=== PATIENT | female | born 1965 | race Caucasian/White ===

== ENCOUNTER 2017-04-08 00:35 | Emergency (ER) | payer BC, OTHER ==
[~2017-04-08] VITALS: Ht 162.6 cm; Wt 101.0 kg
[~2017-04-08 00:35] MED LIST: BENZ1LOZ52 MM; CEPH-443 PO; CIPR500T4 PO; CLIN-73 PO; HYDR-3498 PO; IBUP-1542 PO; PHEN-538 PO; PHEN95TA29 PO
[2017-04-08 00:43] VITALS: Ht 162.6 cm; Wt 101.0 kg
--- NOTE | 2017-04-08 01:36 | ERA ---
ER Documentation Chief Complaint Date/Time DATE: 04/08/17 TIME: 01:35 Chief Complaint depressed,anxious & paranoid hasn't taken psych meds for 2 mos denies si/hi HPI The patient is a 51-year-old female, presenting to the ER because she has been very depressed, anxious, paranoid. She has not taken medication for the last 2 months. She has thought of homicidal ideation but declined to elaborate on it. She denies suicidal ideation, auditory or visual hallucination. She denies headache, neck pain, chest pain, abdominal pain, vomiting, dysuria, diarrhea.. She does not smoke nor drink or use illicit drug Past medical history: Depression, anxiety, schizophrenia, hypertension Past surgical history: Hiatal hernia ROS All systems reviewed and are negative except as per history of present illness. Medications Home Meds Active Scripts Risperidone* (Risperidone*) 1 Mg Tablet, 1 MG PO bed time, #7 TAB Prov:CLAUDE AGRAWAL MD 04/08/17 Lorazepam* (Lorazepam*) 1 Mg Tablet, 1 MG PO BID Y for ANXIETY for 7 Days, #30 TAB Prov:CLAUDE AGRAWAL MD 04/08/17 Phenazopyridine Hcl* (Pyridium*) 200 Mg Tab, 200 MG PO TID Y for URINARY PAIN for 2 Days, #6 TAB Prov:RONEL CANTU PA-C 05/14/16 Reported Medications Acetaminophen/Aspirin/Caffeine* (Excedrin*) 1 Tab Tab, 3 TAB PO QWEEK, TAB TAKE 3 TABS ONCE A WEEK 04/08/17 Pnv 112/Iron/FA/Om-3S/Dha/Epa (Vitafol Gummies) 1 Each Tab.chew, 1 EACH PO, TAB.CHEW 04/08/17 Discontinued Scripts Phenazopyridine Hcl* (Pyridium*) 200 Mg Tab, 200 MG PO TID Y for URINARY PAIN, # 6 TAB Prov:GUSTAVO HILL NP 11/04/16 Ciprofloxacin Hcl* (Ciprofloxacin Hcl*) 500 Mg Tablet, 500 MG PO BID for 10 Days , TAB Prov:GUSTAVO HILL NP 11/04/16 Phenazopyridine Hcl* (AZO*) 95 Mg Tablet, 95 MG PO TID, #10 TAB Prov:JANI CANTU PA-C 07/11/16 Cephalexin* (Keflex*) 500 Mg Capsule, 500 MG PO QID for 7 Days, CAP Prov:JANI CANTU DAVIDC 07/11/16 Benzocaine/Menthol* (Cepacol* Sore Throat Lozenges) 1 Each Lozenge, 1 EACH MM q2h Y for SORE THROAT, #20 LOZENGE Prov:RONEL CANTU DAVIDC 05/14/16 Cephalexin* (Keflex*) 500 Mg Capsule, 500 MG PO QID for 7 Days, CAP Prov:RONEL CANTU [place]-C 05/14/16 Ibuprofen* (Motrin*) 600 Mg Tab, 600 MG PO Q6, #30 TAB Prov:PERRY HILL 04/28/16 Hydrocodone Bit-Acetaminophen* ([place]*) 5-325 Mg Tab, 1 TAB PO Q6 Y for PAIN, # 7 TAB Prov:PERRY HILL 04/28/16 Clindamycin Hcl* (Clindamycin Hcl*) 300 Mg Capsule, 300 MG PO TID for 10 Days, CAP Prov:PERRY HILL 04/28/16 Allergies Allergies: Coded Allergies: No Known Allergy (Unverified , 04/08/17) PMhx/Soc History of Surgery: Yes (hernia repair, esophageal sx) Anesthesia Reaction: No Hx Neurological Disorder: No Hx Respiratory Disorders: No Hx Cardiac Disorders: Yes (HTN) Hx Psychiatric Problems: Yes (depression,anxiety,schizophrenia,paranoia) Hx Miscellaneous Medical Probl: No Hx Alcohol Use: No Hx Substance Use: No Hx Tobacco Use: Yes (quit) Smoking Status: Former smoker Physical Exam Vitals Vital Signs Date Time Temp Pulse Resp B/P Pulse Ox O2 Delivery O2 Flow Rate FiO2 04/08/17 00:43 97.7 87 20 142/89 100 Physical Exam Const: No acute distress. Head: Atraumatic. Eyes: Normal Conjunctiva. ENT: Normal External Ears, Nose and Mouth. Neck: Full range of motion. No meningismus. Resp: Clear to auscultation bilaterally. Cardio: Regular rate and rhythm, no murmurs. Abd: Soft, non distended, normal bowel sounds, non tender. Skin: No petechiae or rashes. Back: No midline or flank tenderness. Ext: No cyanosis, or edema. Neur: Awake and alert. No focal deficit Psych: Anxious Result Diagram: 04/08/17 0200 04/08/17 0200 Results 24 hrs Laboratory Tests Test 04/08/17 01:55 04/08/17 02:00 Urine Color LT. YELLOW Urine Clarity CLEAR Urine pH 6.0 Urine Specific [place] >=1.030 Urine Ketones NEGATIVE Urine Nitrite NEGATIVE Urine Bilirubin NEGATIVE Urine Urobilinogen 0.2 E.U./dL Urine Leukocyte Esterase NEGATIVE Urine Hemoglobin NEGATIVE Urine Glucose NEGATIVE% Urine Total Protein NEGATIVE Urine Opiates Screen NEGATIVE Urine Barbiturates NEGATIVE Urine Amphetamines Screen POSITIVE Urine Benzodiazepines Screen NEGATIVE Urine Cocaine Screen NEGATIVE Urine Cannabinoids POSITIVE White Blood Count 5.710^3/ul Red Blood Count 4.5810^6/ul Hemoglobin 11.9g/dl Hematocrit 38.7% Mean Corpuscular Volume 84.5fl Mean Corpuscular Hemoglobin 26.0pg Mean Corpuscular Hemoglobin Concent 30.7g/dl Red Cell Distribution Width 17.6% Platelet Count 52445^3/UL Mean Platelet Volume 10.0fl Neutrophils % 53.2% Lymphocytes % 31.6% Monocytes % 11.5% Eosinophils % 3.0% Basophils % 0.5% Nucleated Red Blood Cells % 0.0/100WBC Neutrophils # 3.110^3/ul Lymphocytes # 1.810^3/ul Monocytes # 0.710^3/ul Eosinophils # 0.210^3/ul Basophils # 0.010^3/ul Nucleated Red Blood Cells # 0.010^3/ul Sodium Level 140mmol/L Potassium Level 3.6mmol/L Chloride Level 106mmol/L Carbon Dioxide Level 26mmol/L Anion Gap 12 Blood Urea Nitrogen 6mg/dl Creatinine 0.85mg/dl Glucose Level 86mg/dl Calcium Level 9.6mg/dl Total Bilirubin 0.2mg/dl Direct Bilirubin 0.00mg/dl Indirect Bilirubin 0.2mg/dl Aspartate Amino Transf (AST/SGOT) 22IU/L Alanine Aminotransferase (ALT/SGPT) 29IU/L Alkaline Phosphatase 63IU/L Total Protein 6.6g/dl Albumin 3.6g/dl Globulin 3.00g/dl Albumin/Globulin Ratio 1.20 Salicylates Level < 1.0mg/dl Acetaminophen Level < 10.0ug/ml Ethyl Alcohol Level < 10.0mg/dl Current Medications Medications (Trade) Dose Ordered Sig/Den Route PRN Reason Start Time Stop Time Status Last Admin Dose Admin Lorazepam (Ativan) 1 mg ONCE ONCE PO 04/08/17 03:00 04/08/17 03:01 DC 04/08/17 03:06 Procedures/MDM MEDICAL MAKING DECISION: The patient is a 51-year-old female, presenting to the ER because of acute anxiety attack. The differential diagnoses considered include but are not limited to decompensated psychiatric illness, anxiety attack , panic attack, psychosis Consultation: I discussed the patient with the on-call telepsychiatrist who evaluated the patient and recommended to discharge the patient with Ativan 1 mg twice daily and risperidone 1 mg at bedtime for 1 week Departure Diagnosis: Primary Impression: Anxiety attack Additional Impression: Anemia Condition: Good Comments thI discussed the findings with the patient. I advised the patient to follow- up with his psychiatrist in about 1-2 days, sooner if needed and return if any concern. CLAUDE AGRAWAL MD April 08, 2017 01:36
[2017-04-08] MEDS ORDERED: EXCED PO (01:39)
[2017-04-08] MEDS ORDERED: PNV PO (01:39)
[2017-04-08 02:17] LABS: ADD SCAN DIFF NO
[2017-04-08 02:22] LABS: BASOPHILS % 0.5 % (0.0-2.0); EOSINOPHILS # 0.2 10^3/ul (0.0-0.5); HEMATOCRIT 38.7 % (37.0-47.0); HEMOGLOBIN 11.9 g/dl (12.0-16.0); LYMPHOCYTES # 1.8 10^3/ul (0.8-2.9); LYMPHOCYTES % 31.6 % (15.0-51.0); MEAN CORPUSCULAR HGB CONC 30.7 g/dl (32.0-37.0); MEAN CORPUSCULAR VOLUME 84.5 fl (82.0-101.0); MONOCYTE # 0.7 10^3/ul (0.3-0.9); MONOCYTES % 11.5 % (0.0-11.0); NEUTROPHIL # 3.1 10^3/ul (1.6-7.5); NEUTROPHILS % 53.2 % (39.0-77.0); PLATELET COUNT 326 10^3/UL (140-415); RED BLOOD COUNT 4.58 10^6/ul (4.20-5.40); RED CELL DISTRIBUTION WIDTH 17.6 % (11.5-14.5); WHITE BLOOD COUNT 5.7 10^3/ul (4.8-10.8)
[2017-04-08 02:26] LABS: ADD UMIC NO; URINE BILIRUBIN (Dip) NEGATIVE (NEGATIVE); URINE BLOOD (Dip) NEGATIVE (NEGATIVE); URINE COLOR LT. YELLOW (YELLOW); URINE GLUCOSE (Dip) NEGATIVE (NEGATIVE); URINE KETONES (Dip) NEGATIVE (NEGATIVE); URINE LEUKOCYTE ESTERASE (Dip) NEGATIVE (NEGATIVE); URINE NITRITE (Dip) NEGATIVE (NEGATIVE); URINE TOTAL PROTEIN (Dip) NEGATIVE (NEGATIVE); URINE UROBILINOGEN (Dip) 0.2 E.U./dL (0.1-1.0)
[2017-04-08 02:38] LABS: ALBUMIN 3.6 g/dl (3.3-4.9); CHLORIDE 106 mmol/L (97-110); POTASSIUM 3.6 mmol/L (3.5-5.1); SODIUM 140 mmol/L (135-144)
[2017-04-08 02:40] LABS: CREATININE 0.85 mg/dl (0.44-1.00)
[2017-04-08 02:41] LABS: ALANINE AMINOTRANSFERASE 29 IU/L (13-69); ALKALINE PHOSPHATASE 63 IU/L (42-121); ANION GAP 12 (8-16); ASPARTATE AMINO TRANSFERASE 22 IU/L (15-46); BILIRUBIN,INDIRECT 0.2 mg/dl (0-1.1); BILIRUBIN,TOTAL 0.2 mg/dl (0.2-1.3); BLOOD UREA NITROGEN 6 mg/dl (7-20); CALCIUM 9.6 mg/dl (8.4-10.2); CARBON DIOXIDE 26 mmol/L (21-31); GLUCOSE 86 mg/dl (70-220); TOTAL PROTEIN 6.6 g/dl (6.1-8.1)
[2017-04-08 02:47] LABS: ACETAMINOPHEN < 10.0 ug/ml (10.0-30.0); ETHANOL < 10.0 mg/dl; SALICYLATE < 1.0 mg/dl (5.0-30.0)
--- NOTE | 2017-04-08 02:48 | PSY ---
Date/Time of Note Date/Time of Note DATE: 04/08/17 TIME: 02:39 Psychiatric Subjective Eval Subjective Evaluation Chief Complaint: depressed,anxious & paranoid hasn't taken psych meds for 2 mos denies si/hi Reason for consult: anxiety History of present illness patient is a 51 yo female with PPH of deprsesion and anxiety who came to the ER due to feeling more anxious and depressed, patient states that for the past 2 weeks she has been feeling more anxious and depressed for the past 2 weeks and she started to feel that bugs and rats are invaded her. She states that she has been feeling more depressed since last september when a good friend of her . SHe states that she is sleeping well and eating well, denies any SI or HI, but states that she has anger against someone but does not want to do anything about it, she knows that she can control herself and wont act on her impulse. SHe has been very worried about bugs and rats attacking her. she used to be on psych medication but cant remember which ones. she denies any drug or alcohol abuse. denies hearing voices. Past psychiatric history no past suicidal attempt no past psych admission Medical history Problems Medical Problems: (1) Acute pharyngitis Status: Acute (2) Acute urinary tract infection Status: Acute (3) Cellulitis Status: Acute (4) UTI (urinary tract infection) Status: Acute (5) UTI (urinary tract infection) Status: Acute Allergies: Coded Allergies: No Known Allergy (Unverified , 04/08/17) Substance Abuse Substance use: No known substance abuse Social History Marital status: single Level of education: hs DPA/Conservatorship: No Occupation/[facility]: unemployed Psychiatric Objective Eval Review of Systems: Review of Systems: Not Applicable Physical Examination: Physical Examination: Applicable Sleep: Adequate Appetite: Adequate Energy: Decreased Interest: Decreased Mental Status Examination: Appearance: Disheveled Eye Contact: Good Behavior: Cooperative Speech: Clear AFFECT: Depressed Mood: Anxious Though Process: Linear Thought Content: Delusions Suicidal: No Homicidal: No On 72 hour hold: No Orientation: x3 Cognition: Alert Insight: Intact Judgement: Intact Attention Span: Intact Laboratory Results Laboratory Tests Test 04/08/17 01:55 04/08/17 02:00 Urine Color LT. YELLOW Urine Clarity CLEAR Urine pH 6.0 Urine Specific [place] >=1.030 Urine Ketones NEGATIVE Urine Nitrite NEGATIVE Urine Bilirubin NEGATIVE Urine Urobilinogen 0.2 E.U./dL Urine Leukocyte Esterase NEGATIVE Urine Hemoglobin NEGATIVE Urine Glucose NEGATIVE% Urine Total Protein NEGATIVE White Blood Count 5.710^3/ul Red Blood Count 4.5810^6/ul Hemoglobin 11.9g/dl Hematocrit 38.7% Mean Corpuscular Volume 84.5fl Mean Corpuscular Hemoglobin 26.0pg Mean Corpuscular Hemoglobin Concent 30.7g/dl Red Cell Distribution Width 17.6% Platelet Count 32412^3/UL Mean Platelet Volume 10.0fl Neutrophils % 53.2% Lymphocytes % 31.6% Monocytes % 11.5% Eosinophils % 3.0% Basophils % 0.5% Nucleated Red Blood Cells % 0.0/100WBC Neutrophils # 3.110^3/ul Lymphocytes # 1.810^3/ul Monocytes # 0.710^3/ul Eosinophils # 0.210^3/ul Basophils # 0.010^3/ul Nucleated Red Blood Cells # 0.010^3/ul Assessment and Plan Assessment/Diagnosis [place] I: major depressive do with psychosis anxiety do nos [place] II: deferred [place] III: as per record [place] IV: poor social support [place] V: gaf 65 Recommendation/Plan Medication Management ativan 1 mg po bid for one week risperdal 1 mg po qhs for one week Follow-up/Disposition In my opinion,for this patient, outpatient care is the least restrictive option. Based on available evidence, this condition CAN be safely treated at a lower level of care effective today. Patient is stable without clear and convincing evidence of imminent danger due to mental illness that requires acute inpatient psychiatric care as the least restrictive alternative. Please discharge patient with referral for follow up to a outpatient mental health clinic for psychotherapy and medication. REJI LYNNE MD April 08, 2017 02:48
[2017-04-08] MEDS ORDERED: LORAZEPAM 1 MG TAB PO ONE (03:00)
[2017-04-08 03:12] LABS: BARBITURATES NEGATIVE (NEGATIVE); CANNABINOIDS POSITIVE (NEGATIVE); COCAINE NEGATIVE (NEGATIVE); OPIATES NEGATIVE (NEGATIVE)
[2017-04-08 03:27] LABS: BENZODIAZEPINES NEGATIVE (NEGATIVE)
[2017-04-08] MEDS ORDERED: LORA1TAB PO (05:01)
[2017-04-08] MEDS ORDERED: RISP1TAB3 PO (05:02)
[2017-04-08 05:14] VITALS: BP 135/82; PULSE 84; RESP 20; TEMP 97.7
== END 2017-04-08 05:16 | disposition home or self-care (01) ==
LOC: E/R 00:35
DX: F41.9 Anxiety disorder, unspecified (principal); R40.2252 Coma scale, best verbal response, oriented, at arrival to emergency department; D64.9 Anemia, unspecified; I10 Essential (primary) hypertension; R40.2142 Coma scale, eyes open, spontaneous, at arrival to emergency department; R40.2362 Coma scale, best motor response, obeys commands, at arrival to emergency department; Z87.891 Personal history of nicotine dependence
CPT/HCPCS: 36415; 80053; 80306; 80307; 81003; 85025; Z7502; Z7610; 99284

== ENCOUNTER 2017-07-10 21:23 | Emergency (ER) | payer OTHER ==
[~2017-07-10] VITALS: Ht 162.6 cm; Wt 99.5 kg
[~2017-07-10 21:23] MED LIST changes: -BENZ1LOZ52 MM; -CEPH-443 PO; -CIPR500T4 PO; -CLIN-73 PO; +EXCED PO; -HYDR-3498 PO; -IBUP-1542 PO; +LORA1TAB PO; -PHEN95TA29 PO; +PNV PO; +RISP1TAB3 PO
[2017-07-10 21:27] VITALS: Ht 162.6 cm; Wt 99.5 kg
[2017-07-10] MEDS ORDERED: NITR-58 PO (22:49)
[2017-07-10] MEDS ORDERED: BEN50 PO (22:49)
[2017-07-10] MEDS ORDERED: HC30CR25 TOP (22:49)
--- NOTE | 2017-07-10 22:58 | ERA ---
ER Documentation Chief Complaint Date/Time DATE: 07/10/17 TIME: 22:54 Chief Complaint total body skin bumps,"painful and itchy" per patient verbatim HPI 52-year-old female with a chief complaint of a rash 2 days. Patient describes them as extremely pruritic. Patient sleeps outside. Patient also has exposure to possible poison yulisa while helping her friend grow marijuana. Denies fever, chills, nausea, vomiting, diarrhea, constipation, shortness of breath or chest pain. Has no other complaints and describes no other associated manifestations. Nursing notes have been reviewed and are consistent with history given. Also complains of urinary tract infection. Patient states she has a urinary tract infection before. This feels the same. No back pain. Mild suprapubic pain. Urgency and dysuria. ROS All systems reviewed and are negative except as per history of present illness. Medications Home Meds Active Scripts Nitrofurantoin Monohyd Macrocr* (Macrobid*) 100 Mg Capsr, 100 MG PO BID for 14 Days, CAP Prov:CLAUDE IBRAHIM PA-C 07/10/17 Diphenhydramine Hcl* (Benadryl*) 50 Mg Cap, 50 MG PO Q6 Y for ITCHING, #30 CAP Prov:CLAUDE IBRAHIM PA-C 07/10/17 Hydrocortisone* Topical (Hydrocortisone* Topical) 2.5%-28.3 Gm Cream..g., 1 APPLIC TOP BID, #1 TUB Prov:CLAUDE IBRAHIM PA-C 07/10/17 Risperidone* (Risperidone*) 1 Mg Tablet, 1 MG PO bed time, #7 TAB Prov:CLAUDE AGRAWAL MD 04/08/17 Lorazepam* (Lorazepam*) 1 Mg Tablet, 1 MG PO BID Y for ANXIETY for 7 Days, #30 TAB Prov:CLAUDE AGRAWAL MD 04/08/17 Phenazopyridine Hcl* (Pyridium*) 200 Mg Tab, 200 MG PO TID Y for URINARY PAIN for 2 Days, #6 TAB Prov:RONEL CANTU PA-C 05/14/16 Reported Medications Acetaminophen/Aspirin/Caffeine* (Excedrin*) 1 Tab Tab, 3 TAB PO QWEEK, TAB TAKE 3 TABS ONCE A WEEK 04/08/17 Pnv 112/Iron/FA/Om-3S/Dha/Epa (Vitafol Gummies) 1 Each Tab.chew, 1 EACH PO, TAB.CHEW 04/08/17 Allergies Allergies: Coded Allergies: No Known Allergy (Unverified , 04/08/17) PMhx/Soc History of Surgery: Yes (hernia repair, esophageal sx) Anesthesia Reaction: No Hx Neurological Disorder: No Hx Respiratory Disorders: No Hx Cardiac Disorders: Yes (HTN) Hx Psychiatric Problems: Yes (depression,anxiety,schizophrenia,paranoia) Hx Miscellaneous Medical Probl: No Hx Alcohol Use: No Hx Substance Use: No Hx Tobacco Use: Yes (quit) Smoking Status: Smoker,current status unk Physical Exam Vitals Vital Signs Date Time Temp Pulse Resp B/P Pulse Ox O2 Delivery O2 Flow Rate FiO2 07/10/17 21:27 99.5 85 18 129/82 99 Physical Exam Const: Overweight 52-year-old female in no acute distress Skin: Vesicular erythematous lesions spanning 2 cm on the right medial knee. Erythematous nonvesicular lesions less than 1 cm slightly raised on the outer knee. No excoriation or lichenification identified. Most consistent with poison yulisa versus insect bite. Ext: No edema or palpable cord. Normal movement of all extremities grossly observed. Neur: Awake, alert and oriented x3. Neurovascularly intact bilaterally. Oral: No oral edema visualized. Mucous membranes moist and pink. Head: Normocephalic, Atraumatic. Eyes: Non-injected; No discharge. EOMI and PINEDA bilaterally. Ears: Normal External Ears, EACs clear, TM normal bilaterally without erythema. Nose: Normal external nose; no discharge, or sinus tenderness. Neck: No cervical lymphadenopathy, masses or goiter palpated. ~ No meningismus. Pulm: Good air movement in upper and lower respiratory tracts. No dyspnea, stridor, tripoding or drooling. Clear to auscultation bilaterally. Cardio: Regular rate and rhythm; No murmurs, gallops or rubs auscultated. No JVD grossly observed. No cyanosis. Capillary refill less than 2 seconds. Abd: Mild suprapubic tenderness soft, non tender, non distended. No guarding, masses. Normal bowel sounds. MS: Normal motor strength, normal tone with gross examination. Back: No midline, flank or CVA tenderness. Psych: Normal Mood and Affect. Procedures/MDM 52-year-old female presenting with signs and symptoms most consistent with poison yulisa versus insect bite. Patient states that they are extremely pruritic. We will go ahead and discharge patient with hydrocortisone cream, diphenhydramine 50 mg p.o. Patient is also complaining of urinary tract infection. Patient has had urinary tract infections before and this feels similar. Mild suprapubic tenderness on examination. Patient will be prescribed Macrobid. At this time of little suspicion for bacterial involvement of the skin, pyelonephritis or GI involvement. I have spoke with the patient regarding their condition and future management. They have verbally responded that they understand their status and treatment plan. The patients vitals are stable, and their current condition is appropriate for discharge. The patient will be given discharge instructions with return precautions. Departure Diagnosis: Primary Impression: Contact dermatitis Qualified Code: L25.9 - Contact dermatitis, unspecified contact dermatitis type, unspecified trigger Additional Impression: Poison yulisa Condition: Stable Patient Instructions: Contact Dermatitis Additional Instructions: Follow up with your PCP within the next 1-3 days for a more thorough evaluation and a possible referral to a specialist. Return the the emergency department immediately if symptoms worsen or change. If you have any questions regarding medications, ask your pharmacist or us before you leave. If any adverse reactions occur while taking your medications, discontinue the treatment and return to the emergency department immediately. Take your medications as directed, and complete the entire course of treatment. CLAUDE IBRAHIM PA-C Jul 10, 2017 22:58
== END 2017-07-10 23:06 | disposition home or self-care (01) ==
LOC: FTE 21:23
DX: L23.7 Allergic contact dermatitis due to plants, except food (principal); I10 Essential (primary) hypertension; F17.210 Nicotine dependence, cigarettes, uncomplicated
CPT/HCPCS: 99283

== ENCOUNTER 2017-08-10 19:25 | Emergency (ER) | payer OTHER ==
[~2017-08-10] VITALS: Ht 162.6 cm; Wt 120.0 kg
[~2017-08-10 19:25] MED LIST changes: +BEN50 PO; +HC30CR25 TOP; +NITR-58 PO
[2017-08-10] MEDS ORDERED: KETOROLAC 30 MG INJ IM STA (19:28)
[2017-08-10 19:30] VITALS: Ht 162.6 cm; Wt 120.0 kg
[2017-08-10] MEDS ORDERED: ACETAMINOPHEN 500 MG TAB PO STA (19:43)
[2017-08-10] MEDS ORDERED: ACETAMINOPHEN 500 MG TAB ONE (19:43)
[2017-08-10] MEDS ORDERED: SOD CHLORIDE 0.9% 500 ML IV STA (20:06)
[2017-08-10] MEDS ORDERED: LORAZEPAM 2 MG INJ IV ONE (20:30)
--- NOTE | 2017-08-10 21:00 | RADRPT ---
PROCEDURE: XR Chest. CLINICAL INDICATION: Viral syndrome, cough TECHNIQUE: Single frontal view of the chest was obtained COMPARISON: None FINDINGS: The heart is not enlarged. There is the suggestion of minimal ectasia and tortuosity of the thoracic aorta. The lungs are clear. There is no pleural effusion or pneumothorax. ECG leads projected over the chest. IMPRESSION: No acute disease. RPTAT: HJES .Jabier Craig MD, MD Date Time Electronically viewed and signed by .Jabier Craig MD, on 08/10/2017 21:00 .S/
[2017-08-10] MEDS ORDERED: IBUP800T25 PO (21:18)
--- NOTE | 2017-08-10 21:22 | ERD ---
ER Documentation Chief Complaint Date/Time DATE: 08/10/17 TIME: 21:20 Chief Complaint bib ra s/p trip on curb while enroute to ER for bodyaches, fever. no injury HPI This is a 52-year-old female history of schizophrenia who presents to the emergency room complaining of viral syndrome. The patient states that today she started to have body aches and a fever. She describes rhinorrhea nasal congestion a dry nonproductive cough. She states that she was feeling so terrible that she was walking to the emergency room. She states that she tripped over a curb just outside of the emergency room and called 911 because she could not get up. However, the patient transferred to the bed without difficulty. She states that she did not injure herself at all during the fall, she just felt so weak she could not get up. ROS All systems reviewed and are negative except as per history of present illness. Medications Home Meds Active Scripts Ibuprofen* (Motrin*) 800 Mg Tab, 800 MG PO Q6H Y for PAIN AND OR ELEVATED TEMP, #30 TAB Prov:CAT LEVINE MD 08/10/17 Nitrofurantoin Monohyd Macrocr* (Macrobid*) 100 Mg Capsr, 100 MG PO BID for 14 Days, CAP Prov:CLAUDE IBRAHIM PA-C 07/10/17 Diphenhydramine Hcl* (Benadryl*) 50 Mg Cap, 50 MG PO Q6 Y for ITCHING, #30 CAP Prov:CLAUDE IBRAHIM PA-C 07/10/17 Hydrocortisone* Topical (Hydrocortisone* Topical) 2.5%-28.3 Gm Cream..g., 1 APPLIC TOP BID, #1 TUB Prov:CLAUDE IBRAHIM PA-C 07/10/17 Risperidone* (Risperidone*) 1 Mg Tablet, 1 MG PO bed time, #7 TAB Prov:CLAUDE AGRAWAL MD 04/08/17 Lorazepam* (Lorazepam*) 1 Mg Tablet, 1 MG PO BID Y for ANXIETY for 7 Days, #30 TAB Prov:CLAUDE AGRAWAL MD 04/08/17 Phenazopyridine Hcl* (Pyridium*) 200 Mg Tab, 200 MG PO TID Y for URINARY PAIN for 2 Days, #6 TAB Prov:RONEL CANTU PA-C 6/17/16 Reported Medications Acetaminophen/Aspirin/Caffeine* (Excedrin*) 1 Tab Tab, 3 TAB PO QWEEK, TAB TAKE 3 TABS ONCE A WEEK 04/08/17 Pnv 112/Iron/FA/Om-3S/Dha/Epa (Vitafol Gummies) 1 Each Tab.chew, 1 EACH PO, TAB.CHEW 04/08/17 Allergies Allergies: Coded Allergies: No Known Allergy (Unverified , 04/08/17) PMhx/Soc History of Surgery: Yes (HERNIA ESPOHAGEAL REPAIR) Anesthesia Reaction: No Hx Neurological Disorder: No Hx Respiratory Disorders: Yes ("SHORTNESS OF BREATH SOMETIMES") Hx Cardiac Disorders: Yes (HTN) Hx Psychiatric Problems: Yes (PARANOIA SCHIZOPHRENIA) Hx Miscellaneous Medical Probl: No Hx Alcohol Use: No Hx Substance Use: No Hx Tobacco Use: No Smoking Status: Never smoker FmHx Family History: No diabetes Physical Exam Vitals Vital Signs Date Time Temp Pulse Resp B/P Pulse Ox O2 Delivery O2 Flow Rate FiO2 08/10/17 20:48 115 18 120/85 98 Room Air 08/10/17 19:34 138/83 08/10/17 19:30 101.9 104 26 159/109 97 Physical Exam General: Labile mood, easily transitions from chair to bed Head: Normocephalic, atraumatic Eyes: Pupils equally reactive, EOM intact ENT: Moist mucous membranes Neck: Supple, no lymphadenopathy, No midline tenderness, deformities, step-offs to the cervical spine, full active and passive range of motion without midline pain. Respiratory: Lungs clear bilaterally, no distress Cardiovascular: RRR, no murmurs, rubs, or gallops Abdominal: Soft, non-tender, non-distended, no peritoneal signs : Deferred MSK: No edema, no unilateral swelling, 5/5 strength Neurologic: Alert and oriented, moving all extremities, normal speech, no focal weakness, no cerebellar signs, no meningismus Skin: No rash Psych: Tearful and labile mood Results 24 hrs Current Medications Medications (Trade) Dose Ordered Sig/Den Route PRN Reason Start Time Stop Time Status Last Admin Dose Admin Ketorolac Tromethamine (Toradol) 30 mg ONCE STAT IM 08/10/17 19:28 08/10/17 19:29 DC 08/10/17 19:50 Acetaminophen (Tylenol Tab) 500 mg STK-MED ONCE .ROUTE 08/10/17 19:43 08/10/17 19:44 DC Acetaminophen 1000 mg 1,000 mg ONCE STAT PO 08/10/17 19:43 08/10/17 19:45 DC 08/10/17 19:50 Sodium Chloride (NS) 500 ml @ 500 mls/hr Q1H STAT IV 08/10/17 20:06 08/10/17 21:05 DC 08/10/17 20:15 Lorazepam (Ativan) 1 mg ONCE ONCE IV 08/10/17 20:30 08/10/17 20:31 DC 08/10/17 20:26 Procedures/MDM Chest x-ray: I reviewed and interpreted a 1 view of the chest Mediastinum: No enlargement Cardiac silhouette: No cardiomegaly Airspace: Clear lung chavis bilaterally without evidence of pneumothorax Bones: No evidence of fracture The patient's clinical presentation is very consistent with an acute viral syndrome. The patient's underlying psychiatric illness is likely playing a role here. She is extremely anxious and agitated. She has no evidence of acute psychosis but states that she is having myalgias. This is very consistent with viral process. The patient does not exhibit any clinical signs or symptoms concerning for serious bacterial infection or systemic illness. Based on history and clinical exam findings the patient does not appear to have evidence of pneumonia, strep pharyngitis, urinary tract infection, bacteremia, sepsis, or meningitis. Chest x-ray was negative. Patient given antipyretics with improved fever. She was given IV fluids, Toradol, Tylenol and Ativan. The patient now has improved symptoms and improving vital signs. No evidence of systemic illness that warrants labs or other imaging. For these reasons I do not believe it is necessary to obtain laboratory testing. I believe it would be appropriate for symptom control, and close outpatient primary care follow-up. We discussed follow up with the patient's primary care doctor within 24 to 48 hours as needed. We also discussed return to the emergency room for worsening symptoms or worsening condition. Discharge Medications: Motrin Departure Diagnosis: Primary Impression: Viral syndrome Condition: Stable Patient Instructions: Viral Syndrome (Adult) Referrals: SHELLEY RICKS (PCP) Additional Instructions: Call your primary care doctor TOMORROW for an appointment during the next 1 WEEK.Tell the secretary of police that you were referred from this facility.See the doctor sooner or return here if your condition worsens before your appointment time. CAT LEVINE MD Aug 10, 2017 21:22
[2017-08-10 21:39] VITALS: BP 136/77; PULSE 112; RESP 21; TEMP 100
== END 2017-08-10 21:41 | disposition home or self-care (01) ==
LOC: E/R 19:25
DX: B34.9 Viral infection, unspecified (principal); I10 Essential (primary) hypertension
CPT/HCPCS: 36415; 71010; 96372; 96374; J1885; J2060; J7040; Z7502; Z7610

== ENCOUNTER 2017-08-11 06:52 | Emergency (ER) | payer OTHER ==
[~2017-08-11] VITALS: Ht 162.6 cm; Wt 110.0 kg
[~2017-08-11 06:52] MED LIST changes: +IBUP800T25 PO
[2017-08-11 06:55] VITALS: Ht 162.6 cm; Wt 110.0 kg
[2017-08-11] MEDS ORDERED: CEFEPIME 2GM/50 ML (PMX) 50 ML IVPB STA (07:28)
[2017-08-11] MEDS ORDERED: SODIUM CHLORIDE 0.9% 1L BAG IV* STA (07:28)
[2017-08-11] MEDS ORDERED: VANCOMYCIN 1 GM (PMX) 250 ML IVPB ONE (07:30)
[2017-08-11] MEDS ORDERED: ACETAMINOPHEN 500 MG TAB PO STA (07:34)
[2017-08-11] MEDS ORDERED: KETOROLAC 15 MG INJ IV STA (07:34)
--- NOTE | 2017-08-11 07:34 | ERA ---
ER Documentation Chief Complaint Date/Time DATE: 08/11/17 TIME: 07:31 Chief Complaint has pain in her whole body seen here yesterday HPI Patient is a 52-year-old female who presents to the ER with gradual onset, constant, progressive generalized myalgias and fever for 2 days. She denies significant headache, vomiting, abdominal pain, dysuria, back pain, vaginal discharge. She reports having redness to her right leg since yesterday that has been getting progressively worse. She denies cough. She was seen in the ER yesterday and diagnosed with viral syndrome. She does report having a small amount of rhinorrhea. She denies sore throat or ear pain.She denies IV drug use , but acknowledges smoking methamphetamine. She denies recent travel or sick contacts. ROS All systems reviewed and are negative except as per history of present illness. Medications Home Meds Active Scripts Ibuprofen* (Motrin*) 800 Mg Tab, 800 MG PO Q6H Y for PAIN AND OR ELEVATED TEMP, #30 TAB Prov:CAT LEVINE MD 08/10/17 Nitrofurantoin Monohyd Macrocr* (Macrobid*) 100 Mg Capsr, 100 MG PO BID for 14 Days, CAP Prov:CLAUDE IBRAHIM PA-C 07/10/17 Diphenhydramine Hcl* (Benadryl*) 50 Mg Cap, 50 MG PO Q6 Y for ITCHING, #30 CAP Prov:CLADUE IBRAHIM PA-C 07/10/17 Hydrocortisone* Topical (Hydrocortisone* Topical) 2.5%-28.3 Gm Cream..g., 1 APPLIC TOP BID, #1 TUB Prov:CLAUDE IBRAHIM PA-C 07/10/17 Risperidone* (Risperidone*) 1 Mg Tablet, 1 MG PO bed time, #7 TAB Prov:CLAUDE AGRAWAL MD 04/08/17 Lorazepam* (Lorazepam*) 1 Mg Tablet, 1 MG PO BID Y for ANXIETY for 7 Days, #30 TAB Prov:CLAUDE AGRAWAL MD 04/08/17 Phenazopyridine Hcl* (Pyridium*) 200 Mg Tab, 200 MG PO TID Y for URINARY PAIN for 2 Days, #6 TAB Prov:RONEL CANTU PA-C 05/14/16 Reported Medications Acetaminophen/Aspirin/Caffeine* (Excedrin*) 1 Tab Tab, 3 TAB PO QWEEK, TAB TAKE 3 TABS ONCE A WEEK 04/08/17 Pnv 112/Iron/FA/Om-3S/Dha/Epa (Vitafol Gummies) 1 Each Tab.chew, 1 EACH PO, TAB.CHEW 04/08/17 Allergies Allergies: Coded Allergies: No Known Allergy (Unverified , 04/08/17) PMhx/Soc Past medical history: Hypertension, schizophrenia Past surgical history: Herniated disc repair Social history: Smokes methamphetamine, denies alcohol or tobacco. History of Surgery: Yes (HERNIA ESPOHAGEAL REPAIR) Anesthesia Reaction: No Hx Neurological Disorder: No Hx Respiratory Disorders: Yes ("SHORTNESS OF BREATH SOMETIMES") Hx Cardiac Disorders: Yes (HTN) Hx Psychiatric Problems: Yes (PARANOIA SCHIZOPHRENIA) Hx Miscellaneous Medical Probl: No Hx Alcohol Use: No Hx Substance Use: No Hx Tobacco Use: No FmHx Family History: No coronary disease, No diabetes Physical Exam Vitals Vital Signs Date Time Temp Pulse Resp B/P Pulse Ox O2 Delivery O2 Flow Rate FiO2 08/11/17 06:55 104.7 121 22 136/91 97 Physical Exam Const: Alert, rapid speech, writhing on the gurney Head: Atraumatic Eyes: Normal Conjunctiva, No pallor, no icterus ENT: Normal External Ears, Nose and Mouth. Moist mucous membranes, no tonsillar erythema or exudate Neck: Full range of motion..~ No meningismus. No adenopathy Resp: Clear to auscultation bilaterally, No wheezes, no rales Cardio: Regular rate and rhythm, no murmurs Abd: Soft, non tender, non distended. No rebound or guarding Skin: No petechiae or rashes Back: No midline or flank tenderness Ext: No cyanosis, or edema Neur: Awake and alert, Cranial nerves II through XII intact bilaterally, strength and sensation full in 4 extremities. Psych: Normal Mood and Affect Result Diagram: 08/11/17 0725 08/11/17 0725 Results 24 hrs Laboratory Tests Test 08/11/17 07:25 08/11/17 09:50 08/11/17 10:48 08/11/17 11:25 White Blood Count 22.010^3/ul Red Blood Count 4.7810^6/ul Hemoglobin 12.7g/dl Hematocrit 40.1% Mean Corpuscular Volume 83.9fl Mean Corpuscular Hemoglobin 26.6pg Mean Corpuscular Hemoglobin Concent 31.7g/dl Red Cell Distribution Width 15.5% Platelet Count 82825^3/UL Mean Platelet Volume 10.4fl Neutrophils % 89.5% Lymphocytes % 3.6% Monocytes % 6.0% Eosinophils % 0.0% Basophils % 0.2% Nucleated Red Blood Cells % 0.0/100WBC Neutrophils # 19.710^3/ul Lymphocytes # 0.810^3/ul Monocytes # 1.310^3/ul Eosinophils # 0.010^3/ul Basophils # 0.010^3/ul Nucleated Red Blood Cells # 0.010^3/ul Prothrombin Time 13.2Sec Prothrombin Time Ratio 1.0 INR International Normalized Ratio 1.00 Activated Partial Thromboplast Time 30.5Sec Sodium Level 135mmol/L Potassium Level 4.1mmol/L Chloride Level 102mmol/L Carbon Dioxide Level 23mmol/L Anion Gap 14 Blood Urea Nitrogen 6mg/dl Creatinine 0.97mg/dl Glucose Level 109mg/dl Lactic Acid Level 2.2mmol/L 1.0mmol/L 1.5mmol/L Calcium Level 9.8mg/dl Total Bilirubin 0.4mg/dl Direct Bilirubin 0.00mg/dl Indirect Bilirubin 0.4mg/dl Aspartate Amino Transf (AST/SGOT) 22IU/L Alanine Aminotransferase (ALT/SGPT) 30IU/L Alkaline Phosphatase 90IU/L Creatine Kinase 96IU/L Troponin I < 0.012ng/ml Total Protein 7.4g/dl Albumin 3.9g/dl Globulin 3.50g/dl Albumin/Globulin Ratio 1.11 Serum HCG, Qualitative NEGATIVE Urine Color YELLOW Urine Clarity CLEAR Urine pH 6.5 Urine Specific [place] <1.005 Urine Ketones NEGATIVEmg/dL Urine Nitrite NEGATIVEmg/dL Urine Bilirubin NEGATIVEmg/dL Urine Urobilinogen 0.2 E.U./dLmg/dL Urine Leukocyte Esterase NEGATIVELeu/ul Urine Hemoglobin NEGATIVEmg/dL Urine Glucose NEGATIVEmg/dL Urine Total Protein NEGATIVEmg/dl Current Medications Medications (Trade) Dose Ordered Sig/Den Route PRN Reason Start Time Stop Time Status Last Admin Dose Admin Sodium Chloride 3410 ml 3,410 ml BOLUS OVER 2 HOURS STAT IV* 08/11/17 07:28 08/11/17 07:30 DC 08/11/17 08:01 Cefepime HCl 50 ml @ 100 mls/hr ONCE STAT IVPB 08/11/17 07:28 08/11/17 07:57 DC 08/11/17 08:01 Vancomycin HCl (Vancocin) 250 ml @ 125 mls/hr ONCE ONCE IVPB 08/11/17 07:30 08/11/17 09:29 DC 08/11/17 08:30 Ketorolac Tromethamine (Toradol) 15 mg ONCE STAT IV 08/11/17 07:34 08/11/17 07:35 DC 08/11/17 08:03 Acetaminophen (Tylenol Tab) 1,000 mg ONCE STAT PO 08/11/17 07:34 08/11/17 07:35 DC 08/11/17 08:02 Procedures/MDM EKG read by me: Time 750, rate 114 Rhythm: Sinus tachycardia [place]: Normal Intervals: Normal ST-T waves: no ischemic changes Ectopy: No Q-waves: No Impression: No evidence of ischemia or arrhythmia MDM: Patient is a 52-year-old female who presents to the ER with fever to 104.7 and diffuse myalgias. The patient has no localizing pain symptoms such as headache or back pain. She has evidence of cellulitis on the right leg, but otherwise no evidence of acute infection. UA and chest x-ray are unremarkable. She has benign abdominal exam and no associated abdominal symptoms. She has no meningeal signs. Patient denies IV drug use and has no murmur. She denies vaginal discharge. The patient's myalgias and Reiger's are suggestive of a influenza-like illness, but influenza swabs are negative. I am also concerned that the patient may have occult bacteremia, so we will admit the patient for further septic workup. Blood cultures and urine cultures were sent, we placed IV fluids were given, broad-spectrum antibiotics were given. The patient was given Toradol and Tylenol for her pain. I was informed that the patient may require transfer due to insurance status by Dr. Navarro. Transfer is pending. Departure Diagnosis: Primary Impression: Sepsis Qualified Code: A41.9 - Sepsis, due to unspecified organism Additional Impressions: Myalgia Cellulitis of leg, right Condition: ROSY Jefferson MD Aug 11, 2017 07:34
--- NOTE | 2017-08-11 07:55 | RADRPT ---
PROCEDURE: XR Chest. CLINICAL INDICATION: Cough, Body aches TECHNIQUE: Single portable view of the chest was obtained. COMPARISON: 08/10/2017 FINDINGS: Normal cardiomediastinal silhouette. The lungs are clear. No pleural effusion or pneumothorax. IMPRESSION: No acute cardiopulmonary disease. RPTAT:AAJJ Physician Gabby Date Time Electronically viewed and signed by Jm Henao Physician on 08/11/2017 07:55 /
[2017-08-11 08:25] LABS: BASOPHILS % 0.2 % (0.0-2.0); HEMATOCRIT 40.1 % (37.0-47.0); HEMOGLOBIN 12.7 g/dl (12.0-16.0); LYMPHOCYTES # 0.8 10^3/ul (0.8-2.9); LYMPHOCYTES % 3.6 % (15.0-51.0); MEAN CORPUSCULAR HEMOGLOBIN 26.6 pg (29.0-33.0); MEAN CORPUSCULAR HGB CONC 31.7 g/dl (32.0-37.0); MEAN CORPUSCULAR VOLUME 83.9 fl (82.0-101.0); MEAN PLATELET VOLUME 10.4 fl (7.4-10.4); MONOCYTE # 1.3 10^3/ul (0.3-0.9); NEUTROPHIL # 19.7 10^3/ul (1.6-7.5); NEUTROPHILS % 89.5 % (39.0-77.0); PLATELET COUNT 321 10^3/UL (140-415); RED BLOOD COUNT 4.78 10^6/ul (4.20-5.40); RED CELL DISTRIBUTION WIDTH 15.5 % (11.5-14.5)
[2017-08-11 08:39] LABS: PARTIAL THROMBOPLASTIN TIME 30.5 Sec (25.0-35.0); PROTIME 13.2 Sec (12.2-14.2)
[2017-08-11 08:43] LABS: ALANINE AMINOTRANSFERASE 30 IU/L (13-69); ALBUMIN 3.9 g/dl (3.3-4.9); ALBUMIN/GLOBULIN RATIO 1.11; ALKALINE PHOSPHATASE 90 IU/L (42-121); ANION GAP 14 (8-16); ASPARTATE AMINO TRANSFERASE 22 IU/L (15-46); BILIRUBIN,INDIRECT 0.4 mg/dl (0-1.1); BILIRUBIN,TOTAL 0.4 mg/dl (0.2-1.3); BLOOD UREA NITROGEN 6 mg/dl (7-20); CALCIUM 9.8 mg/dl (8.4-10.2); CARBON DIOXIDE 23 mmol/L (21-31); CHLORIDE 102 mmol/L (97-110); CREATINE KINASE 96 IU/L (23-200); CREATININE 0.97 mg/dl (0.44-1.00); GLUCOSE 109 mg/dl (70-220); POTASSIUM 4.1 mmol/L (3.5-5.1); SODIUM 135 mmol/L (135-144); TOTAL PROTEIN 7.4 g/dl (6.1-8.1)
[2017-08-11 08:58] LABS: TROPONIN-I < 0.012 ng/ml (0.00-0.12)
[2017-08-11 11:51] LABS: ADD UMIC NO; UR BILIRUBIN (Dip) NEGATIVE (NEGATIVE); UR BLOOD (Dip) NEGATIVE (NEGATIVE); UR CLARITY CLEAR (CLEAR); UR COLOR YELLOW (YELLOW); UR GLUCOSE (Dip) NEGATIVE (NEGATIVE); UR KETONES (Dip) NEGATIVE (NEGATIVE); UR LEUKOCYTE ESTERASE (Dip) NEGATIVE Leu/ul (NEGATIVE); UR NITRITE (Dip) NEGATIVE (NEGATIVE); UR TOTAL PROTEIN (Dip) NEGATIVE (NEGATIVE); UR UROBILINOGEN (Dip) 0.2 E.U./dL mg/dL (NEGATIVE)
== END 2017-08-11 14:00 | disposition left against medical advice (07) ==
LOC: E/R 06:52
DX: A41.9 Sepsis, unspecified organism (principal); R40.2252 Coma scale, best verbal response, oriented, at arrival to emergency department; M79.1 Myalgia; L03.115 Cellulitis of right lower limb; I10 Essential (primary) hypertension; R40.2142 Coma scale, eyes open, spontaneous, at arrival to emergency department; R40.2362 Coma scale, best motor response, obeys commands, at arrival to emergency department
CPT/HCPCS: 36415; 71010; 80053; 81003; 82550; 83605; 84484; 84703; 85025; 85610; 85730; 87040; 87086; 87400; 93005; 96365; 96366; 96367; 96375; J0692; J1885; J3370; J7030; Z7502; Z7610

== ENCOUNTER 2018-10-12 10:54 | Emergency (ER) | END 2018-10-12 13:08 | disposition home or self-care (01) ==

== ENCOUNTER 2019-05-03 18:16 | Emergency (ER) | payer OTHER ==
[~2019-05-03] VITALS: Ht 162.6 cm; Wt 90.9 kg
[~2019-05-03 18:16] MED LIST changes: -BEN50 PO; +CEPH-443 PO; -EXCED PO; -HC30CR25 TOP; +IBUP-1542 PO; -IBUP800T25 PO; +IBUP800T48 PO; +NEBI10TA2 PO; -NITR-58 PO; -PNV PO
[2019-05-03 18:23] VITALS: Ht 162.6 cm; Wt 90.9 kg
[2019-05-03] MEDS ORDERED: IBUPROFEN 800 MG TAB PO ONE (19:30)
[2019-05-03] MEDS ORDERED: IBUP-1542 PO (19:41)
--- NOTE | 2019-05-03 19:42 | ERD ---
ER Documentation Chief Complaint Chief Complaint CHEST PAIN (PRESSURE) SINCE 0600 THIS MORNING HPI Patient is a 53-year-old female with hypertension who presents for cough and chest pain. Please note the history is limited as the patient has flight of ideas. She said that she woke up today with cough and chest pain and thought it was the "flu". She had subjective fevers. She said that she took "some cold medicine". She has body wide pain. She says "I think I have a urine infection as well". Upon review of old medical records this the patient's 11th visit to the ER since 2016. Review of the emergency department information exchange system shows visits to 2 separate emergency departments for a total of 4 visits over the past 1 year. She has a primary doctor but does not remember the name. ROS All systems reviewed and are negative except as per history of present illness. Medications Home Meds Active Scripts Ibuprofen* (Motrin*) 600 Mg Tab, 600 MG PO Q6H PRN for PAIN AND OR ELEVATED TEMP, #30 TAB Prov:STEPH AGUERO MD 05/03/19 Cephalexin* (Keflex*) 500 Mg Capsule, 500 MG PO QID for 7 Days, CAP Prov:STEPH AGUERO MD 01/10/19 Ibuprofen* (Motrin*) 600 Mg Tab, 600 MG PO Q6H PRN for PAIN AND OR ELEVATED TEMP, #30 TAB Prov:STEPH AGUERO MD 01/10/19 Phenazopyridine Hcl* (Pyridium*) 200 Mg Tab, 200 MG PO TID PRN for URINARY PAIN, #6 TAB Prov:STEPH AGUERO MD 01/10/19 Ibuprofen* (Motrin*) 800 Mg Tab, 800 MG PO Q6H PRN for PAIN AND OR ELEVATED TEMP, #30 TAB Prov:CAT LEVINE MD 08/10/17 Risperidone* (Risperidone*) 1 Mg Tablet, 1 MG PO bed time, #7 TAB Prov:CLAUDE AGRAWAL MD 04/08/17 Lorazepam* (Lorazepam*) 1 Mg Tablet, 1 MG PO BID PRN for ANXIETY for 7 Days, #30 TAB Prov:CLAUDE AGRAWAL MD 04/08/17 Reported Medications Nebivolol Hcl* (Bystolic*) 10 Mg Tablet, 10 MG PO DAILY for 90 Days, #90 01/10/19 Allergies Allergies: Coded Allergies: No Known Allergy (Unverified , 01/10/19) PMhx/Soc History of Surgery: Yes (HERNIA ,ESPOHAGEAL REPAIR) Anesthesia Reaction: No Hx Neurological Disorder: No Hx Respiratory Disorders: Yes ("SHORTNESS OF BREATH SOMETIMES") Hx Cardiac Disorders: Yes (HTN) Hx Psychiatric Problems: Yes (PARANOIA SCHIZOPHRENIA) Hx Miscellaneous Medical Probl: No Hx Alcohol Use: No Hx Substance Use: Yes (marijuana ) Hx Tobacco Use: No Smoking Status: Never smoker FmHx Family History: No diabetes Physical Exam Vitals Vital Signs Date Temp Pulse Resp B/P (MAP) Pulse Ox O2 O2 Flow FiO2 Time Delivery Rate 05/03/19 98.4 86 20 149/107 99 Room Air 19:58 (121) 05/03/19 89 20 138/98 97 Room Air 18:53 (111) 05/03/19 99.0 84 20 130/85 98 18:23 (100) Physical Exam Const: No acute distress Head: Atraumatic Eyes: Normal Conjunctiva ENT: Normal External Ears, Nose and Mouth. Neck: Full range of motion. No meningismus. Resp: Clear to auscultation bilaterally Cardio: Regular rate and rhythm, no murmurs Abd: Soft, non tender, non distended. Normal bowel sounds Skin: No petechiae or rashes Back: No midline or flank tenderness Ext: No cyanosis, or edema Neur: Awake and alert Psych: Flight of ideas, no suicidal or homicidal ideation Results 24 hrs Laboratory Tests Test 05/03/19 19:13 05/03/19 19:36 POC Beta HCG, Qualitative NEGATIVE Bedside Urine pH (LAB) 7.5 Bedside Urine Protein (LAB) Negative Bedside Urine Glucose (UA) Negative Bedside Urine Ketones (LAB) Negative Bedside Urine Blood Negative Bedside Urine Nitrite (LAB) Negative Bedside Urine Leukocyte Esterase (L Negative Current Medications Medications Dose Sig/Den Start Time Status Last (Trade) Ordered Route PRN Stop Time Admin Dose Reason Admin Ibuprofen 800 mg ONCE ONCE 05/03/19 DC 05/03/19 (Motrin) PO 19:30 05/03/19 19:26 19:31 Procedures/MDM Chest X-ray 1V Interpreted by me: Soft Tissue: No acute abnormalities Bones: No acute abnormalities Mediastinum/Cardiac Silhouette/Lungs: No acute abnormalities EKG read by me: Rate/Rhythm: Regular rate and rhythm at a rate of 81 Intervals: Normal Impression: No evidence of ischemia or arrhythmia Urine dip is negative for infection. Patient is a 53-year-old female presents with cough and chest pain. EKG and chest x-ray were negative. Urine dip was negative for infection. At this point I doubt acute coronary syndrome, pneumonia, pneumothorax, pulmonary embolism, or aortic dissection. I believe outpatient management is appropriate but the patient will need close follow-up with her primary doctor within 24 to 48 hours. She can return sooner for any worsening symptoms. Departure Diagnosis: Primary Impression: Chest pain Chest pain type: unspecified Qualified Codes: R07.9 - Chest pain, unspecified Condition: Fair Patient Instructions: Chest Pain, Uncertain Cause Referrals: Your doctor Additional Instructions: Call your primary care doctor TOMORROW for an appointment during the next 1-2 days.See the doctor sooner or return here if your condition worsens before your appointment time. STEPH AGUERO MD May 03, 2019 19:42
[2019-05-03 19:58] VITALS: BP 149/107; PULSE 86; RESP 20
== END 2019-05-03 19:58 | disposition home or self-care (01) ==
LOC: E/R 18:16
DX: I10 Essential (primary) hypertension (principal)
CPT/HCPCS: 71045; 81003; 81025; 93005; Z7502; Z7610